=== PATIENT | female | born 1990 | race African-American/Black ===

== ENCOUNTER 2020-06-26 23:13 | Emergency (ER) | payer SELFPAY ==
[~2020-06-26] VITALS: Ht 165.1 cm; Wt 91.0 kg
[2020-06-26] MEDS ORDERED: MORPHINE SULFATE 4 MG/ML, 1ML IVPush PRN (23:30)
[2020-06-26] MEDS ORDERED: MAALOX/HYOSCYAMINE/LIDOCAINE 45 ML BTL PO ONE (23:30)
[2020-06-26] MEDS ORDERED: SODIUM CHLORIDE 0.9% 1,000ML IVBOLUS ONE (23:30)
[2020-06-26] MEDS ORDERED: ONDANSETRON 2MG/ML, 2ML IVPush ONE (23:30)
[2020-06-26] MEDS ORDERED: FAMOTIDINE 20 MG/2 ML IVPush ONE (23:30)
[2020-06-26] MEDS ORDERED: SODIUM CHLORIDE FLUSH 10ML SYR IVF ONE (23:30)
[2020-06-26 23:35] LABS: BASOPHILS % (AUTO) 0 % (0-1); EOSINOPHILS % (AUTO) 0 % (1-7); LYMPHOCYTES % (AUTO) 16 % (22-44); MEAN CORPUSCULAR HEMOGLOBIN 27.4 pg (27.0-34.8); MEAN CORPUSCULAR HGB CONC 33.4 g/dL (32.4-35.8); MEAN PLATELET VOLUME 8.3 fL (7.4-10.4); MONOCYTES % (AUTO) 3 % (2-9); NEUTROPHILS % (AUTO) 80 % (42-75); PLATELET COUNT 282 x10^3/uL (130-400); RED BLOOD COUNT 5.19 x10^6/uL (3.82-5.3); RED CELL DISTRIBUTION WIDTH 15.4 % (9.6-15.2)
[2020-06-26 23:37] LABS: MD NO
[2020-06-26] MEDS ORDERED: PLEASE ENTER ALLERGIES MC SCH (23:45)
[2020-06-26 23:48] LABS: ALANINE AMINOTRANSFERASE 23 U/L (12-78); ANION GAP 10 mmol/L (5-15); CALCIUM 9.2 mg/dL (8.5-10.1); CHLORIDE 109 mmol/L (98-107); CREATININE 0.83 mg/dL (0.55-1.02)
[2020-06-26 23:52] LABS: ALKALINE PHOSPHATASE 99 U/L (45-117); BILIRUBIN,TOTAL 0.5 mg/dL (0.2-1.0); TOTAL PROTEIN 8.4 g/dL (6.4-8.2)
[2020-06-26] MEDS ORDERED: ONDANSETRON 2MG/ML, 2ML ONE (23:52)
[2020-06-26] MEDS ORDERED: FAMOTIDINE 20 MG/2 ML ONE (23:53)
[2020-06-26] MEDS ORDERED: MORPHINE SULFATE 4 MG/ML, 1ML ONE (23:53)
[2020-06-26] MEDS ORDERED: MAALOX/HYOSCYAMINE/LIDOCAINE 45 ML BTL ONE (23:53)
--- NOTE | 2020-06-27 00:04 | NUR ---
PT CAME IN FROM THE GROUP HOME. PT'S L2K WAS LIFTED BY DR NEELY. PT DENIES SI, HI AND HX OF. PT C/O EPIGASTRIC ABD PAIN WITH NAUSEA AND VOMTING. CALL LIGHT IN PLACE. WILL CONTINUE TO MONITOR.
--- NOTE | 2020-06-27 00:37 | NUR ---
DR NEELY HAS UPDATED PATIENT.
[2020-06-27] MEDS ORDERED: METOCLOPRAMIDE 5 MG/ML, 2ML ONE (00:58)
[2020-06-27] MEDS ORDERED: METOCLOPRAMIDE 5 MG/ML, 2ML IVPush ONE (01:00)
[2020-06-27 01:26] VITALS: BP 119/85
== END 2020-06-27 01:29 | disposition home or self-care (01) ==
LOC: ED 06-27 00:48
DX: K52.9 Noninfective gastroenteritis and colitis, unspecified (principal); R10.13 Epigastric pain; F43.0 Acute stress reaction; R11.2 Nausea with vomiting, unspecified; F17.210 Nicotine dependence, cigarettes, uncomplicated
CPT/HCPCS: 36415; 80053; 83690; 84703; 85025; 96361; 96374; 96375; 99284; 99406; J2270; J2405; J2765; J7030; 99285